=== PATIENT | female | born 1970 ===

== ENCOUNTER 2020-01-31 03:57 | Emergency (ER) | payer BC, OTHER ==
[2020-01-31] MEDS ORDERED: HYDROmorphone 4 MG/ML Syringe SUBCUT PRN (04:20)
[2020-01-31] MEDS ORDERED: Ciprofloxacin 500 MG Tab ONE (04:30)
--- NOTE | 2020-01-31 06:34 | ER ---
HPI: A 49-year-old female who comes in with complaints of lower abdominal/pelvic pain on the right side. This started 2 days ago and has been slowly getting worse. The patient states that she has had inguinal hernia repair x2 in this area and this is exactly where the pain, it is over the incision. The patient denies any falls or injuries. She has not done any heavy lifting. She has had some vaginal spotting or bloody discharge, only some very small amounts. She denies any dysuria, hematuria, flank pain, back pain. She has not been running a fever. She has been using ibuprofen for pain control, which seems to help to some degree, but the pain is slowly getting worse. OBJECTIVE: GENERAL APPEARANCE: The patient is awake and alert. No respiratory distress. VITAL SIGNS: Reviewed. She is afebrile. Blood pressure 119/81, respirations 16, O2 sats 99% on room air. LUNGS: Clear. There is no CVA tenderness with percussion. ABDOMEN: Soft. There is tenderness over the lower right quadrant. There is a well-healed incision in the inguinal area. I can feel a small mass just below the central portion of the incision. This is the area the patient states that she is having her pain. Bowel sounds are present. SKIN: Warm and dry. LABORATORY DATA AND X-RAY: CBC shows a normal white count. Neutrophils are slightly elevated. Metabolic panel is unremarkable. UA does show UTI with large amount of blood, positive nitrites, greater than 100 WBC[address] and moderate bacteria. [address] of the abdomen and pelvis show mild right hydronephrosis with ureteral dilation and thickening of the bladder wall. DIAGNOSES: 1. Urinary tract infection. 2. Mild hydronephrosis. TREATMENT PLAN: I will start the patient on antibiotics, Cipro 500 mg b.i.d. The patient will be off work through the weekend. She was given Dilaudid 1 mg subcu here in the emergency room and that is controlling her pain well at this time. She is to use Tylenol or ibuprofen at home for ongoing pain control. If her condition should get worse over the weekend, she is to come back to the emergency room. A urine culture will be started. Results of that should be available in 2 days. If the patient's condition is improving, a recheck should be Monday at a clinic with her primary care provider. The patient is agreeable with the treatment plan and has no further questions. CRS/MODL /[id number]
--- NOTE | 2020-02-03 08:30 | CT ---
DATE OF SERVICE: 01/31/2020 CLINICAL DATA: Pain Unenhanced abdomen and pelvic CT: Multi slice acquisition through the abdomen and pelvis without IV or oral contrast was performed. Comparison is made to a prior unenhanced abdomen and pelvic CT dated 12 August 2016. There are linear densities in both lung base consistent with linear atelectasis or fibrosis. The lung bases are otherwise clear. The unenhanced liver appears normal. No focal hematic lesions. The gallbladder appears normal. No calcified gallstones. The spleen appears normal. The pancreas appears normal. The right and left adrenals appear normal. No nephrocalcinosis or nephrolithiasis. There is minimal hydronephrosis or hydroureter on the right. No evidence of ureteral calculi. The left kidney appears normal. The bladder is partially fluid filled. There is diffuse bladder wall thickening. Cystitis or an infiltrating process should be considered. There are surgical clips in the adnexal regions bilaterally consistent with prior tubal ligation. The appendix is not dilated. No evidence of appendicitis. There is a moderate amount of stool within the cecum, ascending colon, transverse colon, and proximal descending colon. No free air. No free fluid. No dilated loops of bowel. No adenopathy. No aortic aneurysm. Impression: 1.) Mild right hydronephrosis and hydroureter. No ureteral calculi. The patient may have recently passed a stone. Chronic vesical ureteral reflux on the right should at least be considered. Pyelonephritis should also be considered. 2.) Diffuse bladder wall thickening. Cystitis or infiltrating process should be considered. MTDD
== END 2020-01-31 05:28 | disposition home or self-care (01) ==
LOC: LB.ED 03:57
DX: N39.0 Urinary tract infection, site not specified (principal); N13.30 Unspecified hydronephrosis
CPT/HCPCS: 36415; 74176; 80048; 81001; 85025; 87086; 87088; 87186; 96372; 99284; A9270; J1170